=== PATIENT | male | born 1985 | race Caucasian/White ===

== ENCOUNTER 2023-02-19 11:12 | Inpatient (IN) | payer OTHER, SELFPAY ==
[2023-02-19] VITALS (14 sets, daily range): BP systolic 108–133; BP diastolic 63–85; PULSE 76–109; RESP 15–24; TEMP 36.4–37.3; O2SAT 96–100; BMI 25.2
--- NOTE | ~2023-02-19 | CT_ITS ---
EXAMINATION: CT brain wo con DATE: 02/19/2023 12:38 INDICATION: Altered mental status. TECHNIQUE: Computed tomography (CT) of the head was performed without intravenous contrast. The mA wa s adjusted according to patient size. Iterative reconstruction technique was employed. The dose-lengt h product was 1210.67 mGy-cm. COMPARISON: None FINDINGS: There is no intracranial hemorrhage, acute infarction, or abnormal intracranial mass lesion . The ventricles are normal in size. There is mild mucosal thickening ethmoid sinuses. There is compl ete opacification of the visualized portion of right maxillary sinus. The mastoid air cells are merna l. The orbits are normal. IMPRESSION: 1. Normal brain. Reviewed, dictated and finalized at location A. IMPRESSION: 1. Normal brain.
--- NOTE | ~2023-02-19 | CT_ITS ---
EXAMINATION: CT cervical spine wo con DATE: 02/20/2023 09:48 INDICATION: Seizure and fall TECHNIQUE: Computed tomography (CT) of the cervical spine was performed without intravenous contrast. Automated exposure control and iterative reconstruction technique were employed. The dose-length pro duct was 409.99 mGy-cm. COMPARISON: None FINDINGS: Alignment is normal. Vertebral body heights are normal. No fracture. Minimal disc height loss with mi ld disc bulge at C5-C6 resulting in only minimal central canal stenosis. Mild bilateral facet osteoar thritis at C7-T1 and the visualized upper thoracic spine. Multilevel minimal to mild bilateral cervic al uncovertebral osteoarthritis which contributes to mild neural foraminal stenosis on the left at C5 -C6 and C6-C7. Cervical soft tissues are unremarkable. Visualized apices of the lungs are clear. IMPRESSION: 1. Minimal cervical spondylosis. No acute osseous abnormality. Reviewed, dictated and finalized at location A.
--- NOTE | ~2023-02-19 | MR_ITS ---
EXAMINATION: MR brain/brain stem wo/w con DATE: 02/20/2023 09:45 INDICATION: New onset seizure. TECHNIQUE: Magnetic resonance imaging (MRI) of the brain and brainstem was performed without and with 17 mL MultiHance intravenous contrast. COMPARISON: None. FINDINGS: There is no intracranial hemorrhage, acute infarction, or abnormal intracranial mass lesion . The hippocampi are normal and symmetric. The ventricles are normal. There is mild mucosal thickenin g in the right ethmoid sinuses. There is complete opacification of right maxillary sinus, which is sm all. There is a trace left mastoid effusion. The orbits are normal. IMPRESSION: 1. Normal brain. 2. Silent sinus syndrome involving right maxillary sinus. Reviewed, dictated and finalized at location A.
--- NOTE | ~2023-02-19 | XR_ITS ---
EXAMINATION: XR chest 2V 02/20/2023 13:27 INDICATION: Possible aspiration PROCEDURE: 2 view chest COMPARISON: No prior studies for comparison. FINDINGS: The lungs are clear. The cardiomediastinal silhouette is within normal limits. There are no pleural effusions. There is no pneumothorax suspected. IMPRESSION: 1: NO ACUTE CARDIOPULMONARY DISEASE. Reviewed, dictated and finalized at location B.
--- NOTE | 2023-02-19 11:35 | ECG_ITS ---
Measurements Intervals [place] Rate: 72 P: 63 OK: 176 QRS: 36 QRSD: 103 T: 44 QT: 387 QTc: 425 Interpretive Statements SINUS RHYTHM WITH MARKED SINUS ARRHYTHMIA INCOMPLETE RIGHT BUNDLE BRANCH BLOCK BORDERLINE ECG NO PREVIOUS ECG AVAILABLE FOR COMPARISON Electronically Signed On 02-19-2023 11:41:42 CDT by Ambrosio Gan D.O.
[2023-02-19 11:39] LABS: Glucose Point of Care 142 mg/dl (65-105)
[2023-02-19 12:07] LABS: Basophils Percent Auto 0.2 % (0.2-1.2); Eosinophils Percent Auto 0.1 % (0-4.4); Hematocrit 45.6 % (42.0-52.0); Hemoglobin 15.6 g/dL (14.0-18.0); Immature Granulocyte Absolute 0.16 K/mm3 (0.00-0.031); Immature Granulocyte Percent A 0.9 % (0-0.5); Lymphocytes Percent Auto 5.9 % (18.3-44.2); Mean Corpuscular HGB Conc 34.2 g/dl (32-36); Mean Corpuscular Hemoglobin 30.5 pg (26-34); Mean Corpuscular Volume 89.2 fl (80-100); Monocytes Absolute Auto 1.2 K/mm3 (0.1-0.6); Monocytes Percent Auto 6.5 % (2.6-8.5); Neutrophils Absolute Auto 16.2 K/mm3 (1.3-6.7); Neutrophils Percent Auto 86.4 % (45.5-73.1); Platelet Count Result 250 k/mm3 (150-375); Red Blood Count 5.11 M/mm3 (4.6-6.20); Red Cell Distribution Width 12.9 % (11.5-14.5); White Blood Count 18.7 K/mm3 (4.5-10.0)
[2023-02-19 12:18] LABS: Prothrombin Time 13.6 Seconds (11.1-14.7)
[2023-02-19 12:19] LABS: Alanine Aminotransferase 24 U/L (6-50); Alkaline Phosphatase 74 U/L (38-126); Anion Gap 12 mmol/L (8-16); Aspartate Amino Transferase 33 U/L (17-59); Bilirubin,Total 0.5 mg/dL (0.2-1.3); Blood Urea Nitrogen 8 mg/dL (9-20); Calcium 8.2 mg/dL (8.4-10.2); Carbon Dioxide 18 mmol/L (22-30); Chloride 110 mmol/L (98-107); Estimated Glomerular Filt Rate > 60; Glucose 125 mg/dL (65-110); Partial Thromboplastin Time 25.4 SECONDS (22.3-36.8); Potassium 4.2 mmol/L (3.4-5.0); Sodium 140 mmol/L (137-145)
--- NOTE | 2023-02-19 12:19 | ED.AMS ---
HPI - Altered Mental Status General Chief Complaint: Altered Mental Status Time Seen by Provider: 02/19/23 12:14 Source: patient and family History of Present Illness HPI narrative: Patient 37 years old white male brought to the emergency room by his sister/ambulance. who is telling us that patient roommate told her that patient was screaming last night and acted funny like having a demon. Roommate states that patient did smoke weed, patient stated he bought it off the street which he has done before. Patient does not remember any unusual events yesterday. Patient have dried emesis on his mouth and the close since yesterday. Currently complaining of headache. Sister reported that his roommate heard a thud in the bathroom this morning, found the patient on the floor shaking like having seizure, the ED nurse called me because patient having seizure-like activity, patient was shaking all over, foaming from mouth when I saw him for the first time. Ativan 2 mg IV ordered, 1 g Keppra IV ordered. Related Data Allergies Allergy/AdvReac Type Severity Reaction Status Date / Time No Known Allergies Allergy Verified 03/09/15 18:10 Review of Systems Review of Systems: All systems reviewed & are unremarkable except as noted in HPI and below Exam Narrative: General appearance: Well-developed, well-nourished, restless, status post seizure Skin: Normal color Head: Normocephalic, nontraumatic Eyes: Clear conjunctiva ENT: Oropharynx normal, ears normal, nose normal Neck: Supple, nontender Chest and respiratory: Airway patent, no respiratory distress, no accessory muscle use Heart: Regular rate/rhythm Abdomen: Soft, nontender, no organomegaly, quiet bowel sounds Vascular: Normal peripheral pulses, normal capillary refill. Neurologic: Postictal confusion and restlessness Course Consultations Consultation #1: Dr. Rebollar Date: 02/19/23 Time: 13:10 Vital Signs Vital signs: Vital Signs Pulse Rate 78 02/19/23 11:32 Respiratory Rate 15 02/19/23 11:32 Blood Pressure 123/85 02/19/23 11:32 Pulse Oximetry 97 02/19/23 11:32 Oxygen Delivery Room Air 02/19/23 11:32 Pulse Rate 104 H 02/19/23 13:31 Respiratory Rate 18 02/19/23 13:31 Blood Pressure 132/83 02/19/23 13:30 Pulse Oximetry 98 02/19/23 13:31 Oxygen Delivery Nasal Cannula 02/19/23 13:29 Oxygen Flow Rate 3 02/19/23 13:29 MDM - Altered Mental Status MDM Narrative Medical decision making narrative: Patient brought to the emergency room by ambulance with his sister who is telling us that patient was acting funny yesterday and had a fall in the bathroom this morning and had seizure-like activity, in the ED patient had seizure-like activity and I was called at that time to see the patient and this was the first time for me to evaluate the patient. He was shaking all over, foaming from mouth, consistent with seizure like activity. Ativan 2 mg IV, Keppra 1 g IV ordered. Differential diagnosis drug abuse, new onset of seizure-like activities, head trauma. Work-up today showed elevated white count of 18.7 which could be reactive, patient does not have any fever or chills prior to arrival to the emergency room. Normal coags, normal CMP, insignificant urine analysis, urine drug screen showed positive for marijuana, no alcohol, CT head showed no acute abnormalities. Patient to be admitted to medical floor, neuro consult, Differential Diagnosis Differential diagnosis: Likely altered mental status, hyponatremia, subarachnoid hemorrhage and other (Drug abuse, seizure) Lab Data 02/19/23 12:00 02/19/23 12:00 Labs: Lab Results 02/19/23 02/19/23
[2023-02-19 12:34] LABS: Ethanol < 10 mg/dL (<10)
[2023-02-19] MEDS: LORazepam INJ (*CRX) 2 MG/ML VIAL ×2 (12:50→13:15)
[2023-02-19] MEDS: levETIRAcetam 1000MG/NACL100ML 1,000 MG/100 ML BAG 400 MG IVPB (13:05)
--- NOTE | 2023-02-19 13:15 | PC.NURSE ---
1315: VORB from Dr. Little for 5mg of valium. medication overrode in pyxis.
--- NOTE | 2023-02-19 13:20 | PC.NURSE ---
after pulling the valium and wasting 5mg in the pyxis, Dr. Hunter decided he wanted the entire 10 mg given.
[2023-02-19] MEDS: diazePAM INJ (*CRX) 10 MG/2 ML SYRINGE IV PUSH (13:22)
--- NOTE | 2023-02-19 13:26 | PC.NURSE ---
patient's father present in room states that patient looked similar to what he looked like after having a seizure when he arrived to his house this morning. unsure if patient had previous seizure. patient is not alert, thrashing in bed. unable to follow commands at this time. seizure pads in place. call light given to family to call for assistance as needed. provider aware. patient medicated
[2023-02-19 13:39] LABS: Amphetamine Screen Urine Negative (Negative); Barbiturate Screen Urine Negative (Negative); Benzodiazepines Screen Urine Negative (Negative); Cocaine Screen Urine Negative (Negative); Methadone Screen Urine Negative (Negative); Opiate Screen Urine Negative (Negative); Phencyclidine Screen Urine Negative (Negative)
[2023-02-19 13:48] LABS: Appearance Urine Turbid (Clear); Bacteria Urine Rare /hpf; Bilirubin Urine Negative (Negative); Blood Urine 2+ (Negative); Color Urine Yellow (Yellow); Glucose Urine UA Negative (Negative); Ketones Urine 1+ mg/dL (Negative); Leukocyte Esterase Ur Negative LEU/UL (Negative); Nitrate Urine Negative (Negative); Protein Urine 2+ mg/dL (Negative); RBC Urine 0-2 /hpf (0-2); Specific Grav Ur 1.013 (1.001-1.035); Squamous Epithelial Cell Urine Few /hpf (Few); Urobilinogen Urine 0.2 mg/dL (<2.0); WBC Urine 0-5 /hpf
[2023-02-19 13:49] LABS: Add Urine Microscopic? YES
[2023-02-19 13:56] LABS: Cannabinoid Screen Urine Positive (Negative)
--- NOTE | 2023-02-19 13:57 | PC.NURSE ---
patient continues to move around in bed and will not follow commands. provider aware and ok to take to room then do CT when patient able to relax
--- NOTE | 2023-02-19 14:25 | PC.NURSE ---
This patient, Rohit Leon, was admitted to [facility] Surg Room 333-01. Patient/family oriented to hospital policies and general routines including ID bracelet, bed and alarms, visiting hours, pain management, procedures, bathroom and other care routines, personal items, smoking policy, room service/diet, and visiting hours.Report from Isabella GARCIA Information on how to activate the Rapid Response Team has been discussed. Patient/Family are encouraged to report perceived risks to care and to ask questions if they do not understand what they are told or what they should do.
[2023-02-19] MEDS: SODIUM CHLORIDE 0.9% IV 1,000 ML 125 ML IV CONT ×2 (15:06→23:18)
--- NOTE | 2023-02-19 21:49 | PM.IMHP ---
H&P: HPI History of Present Illness Date/Time: 02/19/23 18:30 Chief Complaint: Altered mental status. Narrative: This is a 37-year-old male smoker without significant medical history who presented to the emergency department via EMS from home for evaluation of altered mental status. He is arousable but unable to provide history and thus a majority of the following is obtained via a review of his electronic medical records as well as discussions with his mother and sister who are at bedside. The patient lives with a roommate in [place] and he seemed to be in his usual state of health yesterday afternoon. He spoke with his mother at around 15:00 and he told her he was once again having migrainous headaches which he developed within the last month or so. He had no other complaints, however. According to the roommate he did smoke some marijuana last evening which is not unusual for him and it was purchased from someone that he knows. Later on in the evening and overnight the patient's from a heard him making strange moaning noises and ?demonic? noises though it does not sound as though he went in the bedroom to check on him. This morning he heard a thud coming from the bathroom and he found the patient lying on the floor in the bathroom, unresponsive with seizure-like activity. EMS was summoned and he was very confused on their arrival. There was evidence of dried emesis on his face and arms. Not long after arriving to the emergency department he had seizure-like activity to include shaking all over and foaming of the mouth for which he received lorazepam 2 mg IV and Keppra 1 g IV. He is being admitted in this setting for close monitoring and further workup. He has no prior history of seizures. Roommate does not think he did any other drugs aside from marijuana yesterday. He does not drink alcohol often. He is not on benzodiazepines at home. He has not been started on any new medications recently. Vital signs were stable on arrival to the ED. labs were significant for a WBC count of 18.7 and carbon dioxide of 18. Urine drug screen was positive for cannabinoids. Brain CT showed a normal brain. He received diazepam 10 mg and lorazepam 2 mg in the ED for seizure-like activity. He was also loaded with levetiracetam 1 g. He has been admitted in this setting for close monitoring and neurology consultation. Review of Systems Review of Systems: Unable to obtain given current clinical condition. [facility] Past Medical History Medical History Tobacco use Surgical History Surgical History History of tympanostomy tube placement Family History Family History Grandparent Diabetes mellitus CHF (congestive heart failure) Father Diabetes mellitus Social History Social History Social History: Surrogate medical decision maker: Daniela Leon, mother. Code status: Full code. Smoking packs per day: 1 Smoking cigarettes per day: 20.0 Years smoked: 3 Smoking pack-years: 3.00 Smoking status: Current every day smoker Tobacco type: cigarettes Alcohol intake: current Alcohol use details: Social alcohol use in moderation. Substance use: current Substance use type: marijuana Additional living arrangements comments: Lives with roommate in [place]. Additional occupation/education comments: [employer]. Spiritual care concerns: No Meds Home Medications and Allergies Home Medications Medication Instructions Recorded Confirmed Type No Home Medications 02/19/23 02/19/23 History Allergies Allergy/AdvReac Type Severity Reaction Status Date / Time No Known Allergies Allergy Verified 02/19/23 15:59 Vital Signs Vital Signs - 24 hr 02/19/23 11:32 02/19/23 13:29 02/19/23 13:16 Temperature Pulse Rate 78 109 H Respiratory Rate 15 Blood Pressure 123/85 Pulse O
[2023-02-20] VITALS (9 sets, daily range): BP systolic 97–126; BP diastolic 59–81; PULSE 47–95; RESP 16–18; TEMP 35.9–36.2; O2SAT 97–100
--- NOTE | 2023-02-20 02:36 | PC.NURSE ---
Patient set bed alarm off several times by climbing out of bed, patient voided in bed and then states he has to void. Found patient this time climbing over bed rails tangled in telemetry and his IV fluid line. Patient had disconnected the cap from the IV tubing connector, blood all over patient and in the bed. IV fluids put on hold at this time d/t patient's confusion and climbing out of bed and being a safety risk to himself.
[2023-02-20 06:28] LABS: Basophils Percent Auto 0.2 % (0.2-1.2); Hemoglobin 14.4 g/dL (14.0-18.0); Immature Granulocyte Absolute 0.09 K/mm3 (0.00-0.031); Immature Granulocyte Percent A 0.5 % (0-0.5); Lymphocytes Absolute Auto 2.52 K/mm3 (0.9-3.2); Lymphocytes Percent Auto 12.9 % (18.3-44.2); Mean Corpuscular HGB Conc 34.3 g/dl (32-36); Mean Corpuscular Hemoglobin 30.7 pg (26-34); Mean Corpuscular Volume 89.6 fl (80-100); Mean Platelet Volume 10.2 fl (7.4-10.4); Monocytes Absolute Auto 2.1 K/mm3 (0.1-0.6); Monocytes Percent Auto 10.9 % (2.6-8.5); Neutrophils Absolute Auto 14.8 K/mm3 (1.3-6.7); Neutrophils Percent Auto 75.5 % (45.5-73.1); Platelet Count Result 232 k/mm3 (150-375); Red Blood Count 4.69 M/mm3 (4.6-6.20); Red Cell Distribution Width 13.2 % (11.5-14.5); White Blood Count 19.5 K/mm3 (4.5-10.0)
[2023-02-20 06:41] LABS: Alanine Aminotransferase 19 U/L (6-50); Albumin Level 4.4 g/dL (3.5-5.1); Alkaline Phosphatase 65 U/L (38-126); Anion Gap 8 mmol/L (8-16); Aspartate Amino Transferase 31 U/L (17-59); Bilirubin,Total 0.8 mg/dL (0.2-1.3); Blood Urea Nitrogen 13 mg/dL (9-20); Calcium 8.6 mg/dL (8.4-10.2); Carbon Dioxide 22 mmol/L (22-30); Chloride 111 mmol/L (98-107); Creatine Kinase 1291 U/L (55-170); Estimated CRCL calculation 76 ml/min; Estimated Glomerular Filt Rate > 60; Glucose 98 mg/dL (65-110); Magnesium 2.6 mg/dL (1.6-2.3); Potassium 3.7 mmol/L (3.4-5.0); Sodium 141 mmol/L (137-145)
[2023-02-20 07:25] LABS: Hemoglobin A1C 5.3 % (<5.7)
[2023-02-20] MEDS: levETIRAcetam 500MG/NACL 100ML 500 MG/100 ML BAG 400 MG IVPB ×2 (08:47→20:12)
--- NOTE | 2023-02-20 09:46 | WPDNEURCNPN ---
Assessment and Plan Assessment and plan (1) Altered mental status: Code(s): R41.82 - Altered mental status, unspecified Status: Acute (2) Seizure disorder: Code(s): G40.909 - Epilepsy, unspecified, not intractable, without status epilepticus Status: Acute (3) Marijuana use: Code(s): F12.90 - Cannabis use, unspecified, uncomplicated Status: Acute Plan Mr. Leon is a 37 year old male presenting due to first time seizure. Could be provoked by drug use. Given first time seizure, will hold off on maintenance seizure medications for now. Will proceed with new onset seizure work-up. - MRI brain w/o contrast - Routine EEG - Discussed no driving until seizure free for at least 6 months Consult date: 02/20/23 Reason for consult: New onset seizure HPI: Rohit Leon is a 37 year old male with a history of chronic tobacco use presenting due to new onset seizure. Patient's roomate reports that patient was screaming last night and not acting like himself. Patient did smoke marijuana which he bought off the street, which is not new for him. The following morning, the roommate heard a thud from patient's room and found him having full body convulsions with foaming at the mouth. EMS was called and patient appeared to be post-ictal at the time. He was taken to [place] ED, where he had another seizure. He was given Ativan 2mg, and Keppra 1g IV. CT head was negative for acute process. Urine drug screen was positive only for cannabinoids. Patient does not have any prior history of seizures. There is no family history of seizures. Review of Systems Constitutional: Constitutional: Denies chills, Denies fever(s) and Denies weight loss Eyes: Eyes: Denies diplopia and Denies loss of vision ENT: Denies dizziness, Denies hearing loss and Denies tinnitus Cardiovascular: Cardiovascular: Denies chest pain, Denies syncope and Denies dyspnea Respiratory: Respiratory: Denies cough, Denies dyspnea and Denies wheezing Gastrointestinal: Gastrointestinal: Denies abdominal pain, Denies change in bowel habits and Denies vomiting Genitourinary: Genitourinary: Denies urinary incontinence Musculoskeletal: Musculoskeletal: Denies arthralgias and Denies joint swelling Integumentary/Breasts: Skin/Breast: Denies new lesions and Denies rash Neurologic: Reports as per HPI, Denies dizziness, Denies syncope and Denies loss of vision Psychiatric: Psychiatric: Denies anxiety and Denies depression Endocrine: Endocrine: Denies cold intolerance and Denies heat intolerance Hematologic/Lymphatic: Hematologic/Lymphatic: Denies easy bleeding and Denies easy bruising Allergic/Immunologic: Allergic/Immunologic: Denies no additional allergic/immunologic complaints and Denies wheezing PMFSH Past Medical History Medical History Tobacco use Surgical History Surgical History History of tympanostomy tube placement Family History Family History Grandparent Diabetes mellitus CHF (congestive heart failure) Father Diabetes mellitus Social History Social History Social History: Surrogate medical decision maker: Daniela Leon, mother. Code status: Full code. Smoking packs per day: 1 Smoking cigarettes per day: 20.0 Years smoked: 3 Smoking pack-years: 3.00 Smoking status: Current every day smoker Tobacco type: cigarettes Alcohol intake: current Alcohol use details: Social alcohol use in moderation. Substance use: current Substance use type: marijuana Additional living arrangements comments: Lives with roommate in [place]. Additional occupation/education comments: [employer]. Spiritual care concerns: No Meds Home Medications and Allergies Home Medications Medication Instructions Recorded Confirmed Type No Home Medications 02/19/23
--- NOTE | 2023-02-20 11:50 | WPDNEUROLOGY ---
Neurology EEG Report General Information Date of Study: 02/20/23 TEST Routine EEG DIAGNOSIS New onset seizure CONDITION OF RECORDING Drowsy, asleep EEG NUMBER [id number] CLINICAL HISTORY Patient had witnessed seizure described as full body convulsions with foaming at the mouth. He had another seizure while in the emergency room. No prior history of seizures. EEG DESCRIPTION During eyes closed the background consists of 9 Hz posterior dominant rhythm which attenuates appropriately with eye opening. The recording is continuous. There is a well developed anterior-posterior gradient. No significant asymmetries of background activities are noted. With drowsiness there is waxing and waning of the dominant rhythm with eventual replacement by a mixture of beta, alpha, and theta activity. As the patient enters stage II sleep, symmetrical spindles and K-complexes are present. Arousal is unremarkable. There are no epileptiform discharges or seizures during this recording. Hyperventilation and photic stimulation were not performed. IMPRESSION This is a normal routine EEG recorded mostly in drowsy and asleep states. There are no electrographic seizures identified, nor are there any epileptiform discharges. Please note that a normal EEG cannot exclude a seizure disorder. Clinical correlation is recommended.
--- NOTE | 2023-02-20 13:24 | PM.IMPN ---
Progress Note: A&P Assessment and Plan (1) Altered mental status: Code(s): R41.82 - Altered mental status, unspecified Status: Acute Assessment and Plan: Resolved. Patient is A&O x4 at this time. Likely due to postictal state. See below. Brain CT showed no acute findings. White blood cell count is elevated though this is likely a stress response as there is no evidence to suggest infection. Drug screen was positive for cannabinoids and nothing else. brain MRI completed today and was unremarkable. (2) Seizure-like activity: Code(s): R56.9 - Unspecified convulsions Status: Acute Assessment and Plan: Patient was reported by his roommate to have strange noises and moaning, later went to check on the patient and found him on the ground. Brought to the ER where he had witnessed seizure activity. Received 1 g loading dose of IV Keppra in the ED. Continue with 500 mg Keppra b.i.d.. Seizure precautions implemented. EEG unremarkable. Appreciate Neurology consultation and recommendations. (3) Leukocytosis: Code(s): D72.829 - Elevated white blood cell count, unspecified Status: Acute Assessment and Plan: Likely demargination. No evidence to suggest infection at this time. Patient is afebrile. CXR completed to rule out aspiration pneumonia (patient reportedly had emesis during seizure activity), however showed no acute cardiopulmonary disease. UA without concerns for infection. WBC has slightly increased to 19.5 today. Continue to trend. (4) Hyperglycemia: Code(s): R73.9 - Hyperglycemia, unspecified Status: Acute Assessment and Plan: Likely due to stress response. Blood sugars well controlled at this time. A1c 5.3. (5) Tobacco use: Code(s): Z72.0 - Tobacco use Status: Acute Assessment and Plan: Smoking cessation has been encouraged. (6) Elevated creatine kinase: Code(s): R74.8 - Abnormal levels of other serum enzymes Status: Acute Assessment and Plan: CK is elevated at 1291. Likely due to seizure activity. Continue with gentle IV fluid rehydration. Trend CK Subjective Date/time seen: 02/20/23 13:24 Interval history: Date of service: 02/20/2023 Rohit Leon is a 37-year-old previously male with daily marijuana use who is seen in follow-up for seizure activity. Patient reports that his doing well at this time, he feels that he is back to his normal self. He denies any seizure-like activity today. He denies any shortness of breath, cough chest pain dysphagia. He is tolerating solids and liquids and denies any choking or coughing with eating or drinking. He denies abdominal pain, nausea, vomiting, fever, or chills. No urinary symptoms. States he has not yet been out of bed today. He denies any muscle aches, cramping, or joint pains. His mother is at the bedside who reports that the patient has been complaining of headache off and on for about 1 month. The patient denies a headache at this time. Denies biting his tongue, lip, cheek, or sustaining any other injuries. Review of Systems Review of Systems: All systems reviewed & are unremarkable except as noted in HPI and below Exam Narrative: General: Well-nourished, well-appearing 37-year-old male, supine in bed, comfortable, NARD Neuro: awake, alert and oriented x4, speech clear, no focal neuro deficits noted HEENMT: normocephalic, atraumatic, EOMI, sclerae anicteric Respiratory: clear to auscultation bilaterally, nonlabored breathing Cardio: regular rate, regular rhythm with S1-S2 Abdomen: nondistended, normoactive bowel sounds, soft, nontender to palpation Extremities: no edema, erythema, or tenderness to palpation, DP pulses 2+ bilaterally Skin: no rashes or lesions, warm and dry Psych: appropriate mood and affect, judgment and insight intact Objective Data Vital Signs Vital Signs: Vital Signs - 24 hr 01/29
--- NOTE | 2023-02-20 16:35 | PC.NURSE ---
Pt is A&O 4 male who answers questions appropriately. Pt has been drowsy today. Pt has had family at bedside. Pt went for CT, MRI, Chest X-Ray, and had an EEG done in room. Pt has tolerated testing well. Pt has reported not pain and states that he does not remember anything that happened. Pt has family at bedside. Will continue to monitor pt for any changes in status.
[2023-02-20] MEDS: SODIUM CHLORIDE 0.9% IV 1,000 ML 125 ML IV CONT (20:14)
[2023-02-21] VITALS (7 sets, daily range): BP systolic 106–141; BP diastolic 57–85; PULSE 52–98; RESP 14–18; TEMP 35.7–36.3; O2SAT 98–100
[2023-02-21 05:58] LABS: Basophils Percent Auto 0.3 % (0.2-1.2); Eosinophils Percent Auto 0.1 % (0-4.4); Hematocrit 40.2 % (42.0-52.0); Hemoglobin 13.6 g/dL (14.0-18.0); Immature Granulocyte Absolute 0.03 K/mm3 (0.00-0.031); Immature Granulocyte Percent A 0.2 % (0-0.5); Lymphocytes Percent Auto 25.6 % (18.3-44.2); Mean Corpuscular HGB Conc 33.8 g/dl (32-36); Mean Corpuscular Hemoglobin 30.3 pg (26-34); Mean Corpuscular Volume 89.5 fl (80-100); Mean Platelet Volume 10.3 fl (7.4-10.4); Monocytes Absolute Auto 1.3 K/mm3 (0.1-0.6); Monocytes Percent Auto 9.7 % (2.6-8.5); Neutrophils Absolute Auto 8.3 K/mm3 (1.3-6.7); Neutrophils Percent Auto 64.1 % (45.5-73.1); Platelet Count Result 205 k/mm3 (150-375); Red Blood Count 4.49 M/mm3 (4.6-6.20); White Blood Count 12.9 K/mm3 (4.5-10.0)
[2023-02-21 06:16] LABS: Alanine Aminotransferase 21 U/L (6-50); Alkaline Phosphatase 55 U/L (38-126); Anion Gap 10 mmol/L (8-16); Aspartate Amino Transferase 81 U/L (17-59); Bilirubin,Total 1.1 mg/dL (0.2-1.3); Blood Urea Nitrogen 14 mg/dL (9-20); Calcium 8.2 mg/dL (8.4-10.2); Carbon Dioxide 21 mmol/L (22-30); Chloride 108 mmol/L (98-107); Estimated CRCL calculation 102 ml/min; Estimated Glomerular Filt Rate > 60; Glucose 80 mg/dL (65-110); Magnesium 2.1 mg/dL (1.6-2.3); Potassium 3.3 mmol/L (3.4-5.0); Sodium 139 mmol/L (137-145)
[2023-02-21 06:53] LABS: Creatine Kinase 14516 U/L (55-170)
[2023-02-21] MEDS: POTASSIUM CHLORIDE 20 MEQ TABLET PO (09:48)
[2023-02-21] MEDS: levETIRAcetam 500MG/NACL 100ML 500 MG/100 ML BAG 400 MG IVPB (09:48)
[2023-02-21] MEDS: SODIUM CHLORIDE 0.9% IV 1,000 ML 125 ML IV CONT ×2 (09:48→18:13)
--- NOTE | 2023-02-21 11:40 | WPDNEUROPN ---
Progress Note: A&P Assessment and Plan (1) Seizure-like activity: Code(s): R56.9 - Unspecified convulsions Status: Acute (2) Altered mental status: Code(s): R41.82 - Altered mental status, unspecified Status: Acute (3) Marijuana use: Code(s): F12.90 - Cannabis use, unspecified, uncomplicated Status: Acute Plan Mr. Leon is a 37 year old male presenting due to first time seizure. Could be provoked by drug use. Given first time seizure, will hold off on maintenance seizure medications for now. Work-up has been negative (MRI brain and EEG) - OK to discharge - Discussed no driving until seizure free for at least 6 months - [place] [facility] [place] about 3-4 months Subjective Date/time seen: 02/21/23 11:40 Interval history: Rohit Leon is a 37 year old male with a history of chronic tobacco use presenting due to new onset seizure. Patient's roomate reports that patient was screaming last night and not acting like himself. Patient did smoke marijuana which he bought off the street, which is not new for him. The following morning, the roommate heard a thud from patient's room and found him having full body convulsions with foaming at the mouth. EMS was called and patient appeared to be post-ictal at the time. He was taken to [facility] ED, where he had another seizure. He was given Ativan 2mg, and Keppra 1g IV. CT head was negative for acute process. Urine drug screen was positive only for cannabinoids. Patient does not have any prior history of seizures. There is no family history of seizures. He has not had any additonal seizures since admission. EEG and MRI brain were normal. Review of Systems Constitutional: Constitutional: Denies chills, Denies fever(s) and Denies weight loss Eyes: Eyes: Denies diplopia and Denies loss of vision ENT: Denies dizziness, Denies hearing loss and Denies tinnitus Cardiovascular: Cardiovascular: Denies chest pain, Denies syncope and Denies dyspnea Respiratory: Respiratory: Denies cough, Denies dyspnea and Denies wheezing Gastrointestinal: Gastrointestinal: Denies abdominal pain, Denies change in bowel habits and Denies vomiting Genitourinary: Genitourinary: Denies urinary incontinence Musculoskeletal: Musculoskeletal: Denies arthralgias and Denies joint swelling Integumentary/Breasts: Skin/Breast: Denies new lesions and Denies rash Neurologic: Reports as per HPI, Denies dizziness, Denies syncope and Denies loss of vision Psychiatric: Psychiatric: Denies anxiety and Denies depression Endocrine: Endocrine: Denies cold intolerance and Denies heat intolerance Hematologic/Lymphatic: Hematologic/Lymphatic: Denies easy bleeding and Denies easy bruising Allergic/Immunologic: Allergic/Immunologic: Denies no additional allergic/immunologic complaints and Denies wheezing Exam Const: General: comfortable and no acute distress HENMT: Mouth: Yes moist mucous membranes Eyes: Pupils: Equal, round and reactive pupils present EOM: EOMs intact bilaterally Resp: Effort & Inspection: normal respiratory effort Auscultation: clear to auscultation bilaterally Cardio: Rate: bradycardic GI: GI Palp: Yes Soft to palpation Auscultation: normal bowel sounds Skin: General skin exam: normal color Neuro: Other: Pupils equal and reactive bilaterally, EOMI, face symmetric, facial sensation intact, tongue protrudes midline, palate midline. Shoulder shrug normal. Strength 5/5 throughout. Sensation intact throughout. FNF normal bilaterally. Language comprehension and fluency intact. Gait deferred. Extrem: General: normal to inspection Psych: Mental Status: mental status grossly normal Affect: normal affect Objective Data Vital Signs Vital Signs: Vital Signs - 24 hr 02/20/23 11:58 02/20/23 12:03 02/20/23 16:00 Temperature 35.9 C L 36.2 C L Pulse Rate 56 L 52 L 95 Respiratory Rate 16 16 Blood Pressure 119/59 L 120/70 Pulse Oximetry 99 97
--- NOTE | 2023-02-21 13:17 | PM.IMPN ---
Progress Note: A&P Assessment and Plan (1) Altered mental status: Code(s): R41.82 - Altered mental status, unspecified Status: Resolved Assessment and Plan: Resolved. Patient is A&O x4 at this time. Likely due to postictal state. See below. Brain CT showed no acute findings. White blood cell count elevated which is likely a stress response as there is no evidence to suggest infection. Drug screen was positive for only cannabinoids. brain MRI unremarkable. (2) Seizure-like activity: Code(s): R56.9 - Unspecified convulsions Status: Acute Assessment and Plan: Patient was reported by his roommate to have strange noises and moaning, later went to check on the patient and found him on the ground. Brought to the ER where he had witnessed seizure activity. Received 1 g loading dose of IV Keppra in the ED and subsequently was placed on Keppra 500 mg b.i.d.. Seizure precautions have been implemented. EEG unremarkable. Patient has been seen in consultation by Neurology, recommended patient avoid driving or other risky activities for 6 months. As this is his 1st time seizure, hold off on maintenance medications for now. Will discontinue IV Keppra. Will need outpatient neurology follow-up in 3-4 months (3) Rhabdomyolysis: Code(s): M62.82 - Rhabdomyolysis Status: Acute Assessment and Plan: Suspect secondary to seizure activity cK was 1291 yesterday. Renal function within normal limits, LFTs within normal limits. UA with 2+ blood but no RBCs. Patient has received IV fluids, normal saline at 125 mL[place] [address]. Suspect CK has peaked and hopeful for downward trend. Continue IV fluids at present rate. Patient appears to be adequately rehydrated. Give 1 dose of IV Lasix. Recheck CK and UA in the morning (4) Leukocytosis: Code(s): D72.829 - Elevated white blood cell count, unspecified Status: Acute Assessment and Plan: WBC elevated to 19.5. Likely demargination. No evidence to suggest infection at this time. Patient is afebrile. CXR completed to rule out aspiration pneumonia (patient reportedly had emesis during seizure activity), however showed no acute cardiopulmonary disease. UA without concerns for infection. WBC with improvement today to 12.9 (5) Hyperglycemia: Code(s): R73.9 - Hyperglycemia, unspecified Status: Acute Assessment and Plan: Likely due to stress response. Blood sugars well controlled at this time. A1c 5.3. (6) Tobacco use: Code(s): Z72.0 - Tobacco use Status: Acute Assessment and Plan: Smoking cessation has been encouraged. Subjective Date/time seen: 02/21/23 13:17 Interval history: Date of service: 02/21/2023 Rohit Leon is a 37-year-old previously male with daily marijuana use who is seen in follow-up for seizure activity. Patient feels very well today. He offers no complaints. Feels that he is at his baseline state of health. No seizure-like activity since admission. Appetite is good. Reports difficulty sleeping due to the bed being uncomfortable to him. Denies confusion. Denies headache. No nausea or vomiting. Denies muscle aches, cramping, swelling, or pain Review of Systems Review of Systems: All systems reviewed & are unremarkable except as noted in HPI and below Exam Narrative: General: Well-nourished, well-appearing 37-year-old male, supine in bed, comfortable, NARD Neuro: awake, alert and oriented x4, speech clear, no focal neuro deficits noted HEENMT: normocephalic, atraumatic, EOMI, sclerae anicteric Respiratory: clear to auscultation bilaterally, nonlabored breathing Cardio: regular rate, regular rhythm with S1-S2 Abdomen: nondistended, normoactive bowel sounds, soft, nontender to palpation Extremities: no edema, erythema, or tenderness to palpation, DP pulses 2+ bilaterally Skin: no rashes or lesions, warm and dry Ps
[2023-02-21] MEDS: FUROSEMIDE INJ 40 MG/4 ML VIAL IV PUSH (16:06)
[2023-02-22] VITALS: BP 121/80; PULSE 64; PULSE 73; RESP 16; TEMP 35.9; O2SAT 97
[2023-02-22] MEDS: SODIUM CHLORIDE 0.9% IV 1,000 ML 125 ML IV CONT (02:22)
[2023-02-22 04:00] VITALS: BP 150/84; PULSE 50; PULSE 60; RESP 18; TEMP 35.7; O2SAT 98
[2023-02-22 05:38] LABS: Appearance Urine Clear (Clear); Bacteria Urine None Seen /hpf; Bilirubin Urine Negative (Negative); Blood Urine Trace (Negative); Color Urine Yellow (Yellow); Glucose Urine UA Negative (Negative); Ketones Urine 1+ mg/dL (Negative); Leukocyte Esterase Ur Negative LEU/UL (Negative); Nitrate Urine Negative (Negative); Non Pathogenic Casts 0-2; Protein Urine Negative (Negative); RBC Urine 0-2 /hpf (0-2); Specific Grav Ur 1.013 (1.001-1.035); Squamous Epithelial Cell Urine None seen /hpf (Few); WBC Urine 0-5 /hpf
[2023-02-22 05:52] LABS: Add Urine Microscopic? YES
[2023-02-22 06:26] LABS: Basophils Percent Auto 0.3 % (0.2-1.2); Eosinophils Percent Auto 0.3 % (0-4.4); Hematocrit 42.7 % (42.0-52.0); Hemoglobin 14.6 g/dL (14.0-18.0); Immature Granulocyte Absolute 0.02 K/mm3 (0.00-0.031); Immature Granulocyte Percent A 0.2 % (0-0.5); Lymphocytes Absolute Auto 3.04 K/mm3 (0.9-3.2); Lymphocytes Percent Auto 30.2 % (18.3-44.2); Mean Corpuscular HGB Conc 34.2 g/dl (32-36); Mean Corpuscular Hemoglobin 29.6 pg (26-34); Mean Corpuscular Volume 86.4 fl (80-100); Mean Platelet Volume 10.4 fl (7.4-10.4); Monocytes Percent Auto 10.3 % (2.6-8.5); Neutrophils Absolute Auto 5.9 K/mm3 (1.3-6.7); Neutrophils Percent Auto 58.7 % (45.5-73.1); Platelet Count Result 223 k/mm3 (150-375); Red Blood Count 4.94 M/mm3 (4.6-6.20); Red Cell Distribution Width 12.4 % (11.5-14.5); White Blood Count 10.1 K/mm3 (4.5-10.0)
[2023-02-22 06:39] LABS: Alanine Aminotransferase 28 U/L (6-50); Albumin Level 4.1 g/dL (3.5-5.1); Alkaline Phosphatase 49 U/L (38-126); Anion Gap 8 mmol/L (8-16); Aspartate Amino Transferase 125 U/L (17-59); Bilirubin,Total 1.1 mg/dL (0.2-1.3); Blood Urea Nitrogen 11 mg/dL (9-20); Calcium 8.6 mg/dL (8.4-10.2); Carbon Dioxide 26 mmol/L (22-30); Chloride 107 mmol/L (98-107); Estimated CRCL calculation 115 ml/min; Estimated Glomerular Filt Rate > 60; Glucose 111 mg/dL (65-110); Magnesium 1.8 mg/dL (1.6-2.3); Potassium 3.2 mmol/L (3.4-5.0); Sodium 141 mmol/L (137-145)
[2023-02-22 07:24] LABS: Creatine Kinase > 16000 U/L (55-170)
[2023-02-22] MEDS: POTASSIUM CHLORIDE 20 MEQ TABLET 40 MEQ PO (07:56)
[2023-02-22 08:00] VITALS: BP 129/78; PULSE 60; PULSE 64; RESP 20; TEMP 36.2; O2SAT 99
[2023-02-22] MEDS: SODIUM CHLORIDE 0.9% IV 1,000 ML 150 ML IV CONT ×2 (10:10→16:52)
[2023-02-22 12:00] VITALS: BP 158/88; PULSE 52; PULSE 72; RESP 18; TEMP 36.6; O2SAT 100
--- NOTE | 2023-02-22 14:37 | PM.IMPN ---
Progress Note: A&P Assessment and Plan (1) Altered mental status: Code(s): R41.82 - Altered mental status, unspecified Status: Resolved Assessment and Plan: Resolved. Patient is A&O x4 at this time. Likely due to postictal state. See below. Brain CT showed no acute findings. White blood cell count elevated which is likely a stress response as there is no evidence to suggest infection. Drug screen was positive for only cannabinoids. brain MRI unremarkable. (2) Seizure-like activity: Code(s): R56.9 - Unspecified convulsions Status: Acute Assessment and Plan: Patient was reported by his roommate to have strange noises and moaning, later went to check on the patient and found him on the ground. Brought to the ER where he had witnessed seizure activity. Received 1 g loading dose of IV Keppra in the ED and subsequently was placed on Keppra 500 mg b.i.d.. Seizure precautions have been implemented. EEG unremarkable. Patient has been seen in consultation by Neurology, recommended patient avoid driving or other risky activities for 6 months. As this is his 1st time seizure, hold off on maintenance medications for now. IV Keppra discontinued on 02/21. Will need outpatient neurology follow-up in 3-4 months (3) Rhabdomyolysis: Code(s): M62.82 - Rhabdomyolysis Status: Acute Assessment and Plan: Suspect secondary to seizure activity. Initial CK was 1291. Renal function within normal limits. AST slightly elevated, additional LFTs within normal limits. UA with 2+ blood but no RBCs. CK has increased to >23804 due to likely prolonged seizure activity. Hopeful CK has peaked and will begin to trend downward. IV Lasix 40 mg x1 dose given yesterday with excellent urine output. Will increase IV fluids to 150 ml/hr today. Patient tolerating fluid without difficulty. Repeat UA today with clear urine and only only trace blood. Continue to trend CK. (4) Leukocytosis: Code(s): D72.829 - Elevated white blood cell count, unspecified Status: Acute Assessment and Plan: WBC elevated to 19.5 on presentation. Likely demargination. No evidence to suggest infection at this time. Patient is afebrile. CXR completed to rule out aspiration pneumonia (patient reportedly had emesis during seizure activity), however showed no acute cardiopulmonary disease. UA without concerns for infection. WBC with improvement today to 10.1 (5) Hyperglycemia: Code(s): R73.9 - Hyperglycemia, unspecified Status: Acute Assessment and Plan: Likely due to stress response. Blood sugars well controlled at this time. A1c 5.3. (6) Tobacco use: Code(s): Z72.0 - Tobacco use Status: Acute Assessment and Plan: Smoking cessation has been encouraged. Subjective Date/time seen: 02/22/23 14:37 Interval history: Date of service: 02/22/2023 Rohit Leon is a 37-year-old previously male with daily marijuana use who is seen in follow-up for seizure activity. He is feeling well today. He offers no complaints other than discomfort due to sleeping in the hospital bed. He is eating well. No muscle pain or weakness. He is very eager for discharge home. Review of Systems Review of Systems: All systems reviewed & are unremarkable except as noted in HPI and below Exam Narrative: General: Well-nourished, well-appearing 37-year-old male, supine in bed, comfortable, NARD Neuro: awake, alert and oriented x4, speech clear, no focal neuro deficits noted HEENMT: normocephalic, atraumatic, EOMI, sclerae anicteric Respiratory: clear to auscultation bilaterally, nonlabored breathing Cardio: regular rate, regular rhythm with S1-S2 Abdomen: nondistended, normoactive bowel sounds, soft, nontender to palpation Extremities: no edema, erythema, or tenderness to palpation, DP pulses 2+ bilaterally Skin: no rashes or lesions, warm and dry Psych: appropriate moo
[2023-02-22 16:00] VITALS: BP 149/81; PULSE 65; RESP 20; TEMP 36.4; O2SAT 99
[2023-02-22] MEDS: MAGNESIUM SULF 2 GM/WATER 50ML 2 GM/50 ML BAG IVPB (16:52)
[2023-02-22 20:00] VITALS: BP 145/93; PULSE 65; PULSE 87; RESP 20; TEMP 36.3; O2SAT 99
[2023-02-23] VITALS: BP 109/72; PULSE 80; RESP 18; TEMP 36.2; O2SAT 98
[2023-02-23 04:00] VITALS: BP 128/75; PULSE 76; RESP 20; TEMP 36.3; O2SAT 99
[2023-02-23] MEDS: SODIUM CHLORIDE 0.9% IV 1,000 ML 150 ML IV CONT ×2 (06:08→12:25)
[2023-02-23 07:17] LABS: Hematocrit 44.1 % (42.0-52.0); Hemoglobin 15.2 g/dL (14.0-18.0); Mean Corpuscular HGB Conc 34.5 g/dl (32-36); Mean Corpuscular Hemoglobin 30.3 pg (26-34); Mean Platelet Volume 10.4 fl (7.4-10.4); Platelet Count Result 227 k/mm3 (150-375); Red Blood Count 5.01 M/mm3 (4.6-6.20); Red Cell Distribution Width 12.6 % (11.5-14.5); White Blood Count 9.5 K/mm3 (4.5-10.0)
[2023-02-23 07:41] LABS: Alanine Aminotransferase 37 U/L (6-50); Albumin Level 4.2 g/dL (3.5-5.1); Alkaline Phosphatase 53 U/L (38-126); Anion Gap 6 mmol/L (8-16); Aspartate Amino Transferase 183 U/L (17-59); Bilirubin,Total 1.1 mg/dL (0.2-1.3); Blood Urea Nitrogen 7 mg/dL (9-20); Calcium 8.8 mg/dL (8.4-10.2); Carbon Dioxide 29 mmol/L (22-30); Chloride 107 mmol/L (98-107); Estimated CRCL calculation 115 ml/min; Estimated Glomerular Filt Rate > 60; Glucose 99 mg/dL (65-110); Magnesium 2.1 mg/dL (1.6-2.3); Potassium 3.4 mmol/L (3.4-5.0); Sodium 142 mmol/L (137-145)
[2023-02-23 08:00] VITALS: BP 148/91; PULSE 81; RESP 20; TEMP 35.7; O2SAT 100
[2023-02-23 09:00] VITALS: O2SAT 98
[2023-02-23 12:24] LABS: Creatine Kinase > 16000 U/L (55-170)
--- NOTE | 2023-02-23 12:32 | PM.DS ---
DS: Admitting Diagnosis Discharge Date 02/23/2023 Admitting Diagnosis seizure-like activity DS: Discharge Diagnosis Discharge Diagnosis (1) Altered mental status: Code(s): R41.82 - Altered mental status, unspecified Status: Resolved Assessment and Plan: Resolved. Patient is A&O x4 at this time. Likely due to postictal state. See below. Brain CT showed no acute findings. White blood cell count elevated which is likely a stress response as there is no evidence to suggest infection. Drug screen was positive for only cannabinoids. brain MRI unremarkable. (2) Seizure-like activity: Code(s): R56.9 - Unspecified convulsions Status: Acute Assessment and Plan: Patient was reported by his roommate to have strange noises and moaning, later went to check on the patient and found him on the ground. Brought to the ER where he had witnessed seizure activity. Received 1 g loading dose of IV Keppra in the ED and subsequently was placed on Keppra 500 mg b.i.d.. EEG unremarkable. Patient has been seen in consultation by Neurology, recommended patient avoid driving or other risky activities for 6 months. As this is his 1st time seizure, hold off on maintenance medications for now. IV Keppra discontinued on 02/21. Will need outpatient neurology follow-up in 3-4 months. to establish with PCP in the meantime (3) Rhabdomyolysis: Code(s): M62.82 - Rhabdomyolysis Status: Acute Assessment and Plan: Suspect secondary to seizure activity. Initial CK was 1291. Renal function within normal limits. AST slightly elevated, additional LFTs within normal limits. UA with 2+ blood but no RBCs. CK has increased to >30823 due to likely prolonged seizure activity. patient refused longer hospitalization to monitor for decline in CK. States he will sign out AMA if not discharged today. He understands the need to push fluids and return to the hospital should his urine turned darker or urine output decrease. At present he is having no muscle pain. He understands he should avoid strenuous activity until seen for follow-up by PCP. (4) Leukocytosis: Code(s): D72.829 - Elevated white blood cell count, unspecified Status: Acute Assessment and Plan: WBC elevated to 19.5 on presentation. Likely demargination. No evidence to suggest infection at this time. Patient is afebrile. CXR completed to rule out aspiration pneumonia (patient reportedly had emesis during seizure activity), however showed no acute cardiopulmonary disease. UA without concerns for infection. WBC with improvement today to 9.5 (5) Hyperglycemia: Code(s): R73.9 - Hyperglycemia, unspecified Status: Acute Assessment and Plan: Likely due to stress response. Blood sugars well controlled at this time. A1c 5.3. (6) Tobacco use: Code(s): Z72.0 - Tobacco use Status: Acute Assessment and Plan: Smoking cessation has been encouraged. (7) Cannabis use disorder: Code(s): F12.90 - Cannabis use, unspecified, uncomplicated Status: Acute Assessment and Plan: F/u with PCP DS: Summary Hospital Course Reason for hospitalization: Seizure-like activity Hospital Course: admitted when roommate noted seizure-like activity. EMS summoned. Brought to the emergency department. Was confused. This resolved. EEG and MRI of the brain were unremarkable. He was seen by Neurology and no maintenance anti seizure medication was recommended. He was initially treated with Keppra and this was discontinued on 02/21. He had no further seizure activity. He was up and about without difficulty tolerating his diet. Able to manage ADLs on his own. He was alert oriented person place and time. Time Spent with Patient Time attestation: Total time spent providing and/or coordinating discharge services: Exam Narrative: General: Well-nourished, well-appearing 37-year-o
== END 2023-02-23 13:55 | disposition home or self-care (01) | DRG 53 ==
LOC: ANHED 12:14 → ANH3MEDSUR 14:05
PROVIDERS: Family Medicine; Physician Assistant; Admitting Provider Chiropractor; Emergency Provider Emergency Medicine; Visit Provider Internal Medicine
DX: R56.9 Unspecified convulsions (principal); M62.82 Rhabdomyolysis; D72.829 Elevated white blood cell count, unspecified; F17.210 Nicotine dependence, cigarettes, uncomplicated; F12.90 Cannabis use, unspecified, uncomplicated; R73.9 Hyperglycemia, unspecified
CPT/HCPCS: 36415; 70450; 70553; 71046; 72125; 80053; 80307; 81001; 82550; 82607; 82948; 83036; 83735; 84443; 85025; 85027; 85610; 85730; 86140; 93005; 95816; 96361; 96365; 96374; 96375; 96376; 99285; A9270; A9577; G0378; G0379; J1940; J1953; J2060; J3360; J3475; J7030

== ENCOUNTER 2023-04-30 11:21 | Emergency (ER) | payer OTHER, SELFPAY ==
--- NOTE | ~2023-04-30 | XR_ITS ---
Clinical Indication: Cough PA and lateral views of the chest: Comparison: 02/20/2023 Findings: The lungs are clear, without evidence of focal consolidation or pleural effusion. Cardiome diastinal silhouette is within normal limits. Bones and soft tissues are unremarkable. Impression: Normal chest. Reviewed, dictated and finalized at location . Impression: Normal chest.
[2023-04-30 11:30] VITALS: BP 156/97; PULSE 116; RESP 18; TEMP 37.1; O2SAT 98
[2023-04-30 11:32] VITALS: BP 156/97; PULSE 116; RESP 18; TEMP 37.1; O2SAT 98
--- NOTE | 2023-04-30 11:37 | ED.GENADULT ---
HPI - General Adult General Chief complaint: Upper Respiratory Infection Stated complaint: Cough/Chest Pain Source: patient Mode of arrival: ambulatory Limitations: no limitations History of Present Illness HPI narrative: Patient presents for evaluation of cough for the past week. During coughing episodes and with deep inspiration, he does experience some pleuritic chest pain. Denies chest pain otherwise. No fever, chills, nausea, vomiting, sore throat. He does have some pressure in his ears and reports changes in his sense of taste and also sense of smell. His PCP prescribed tessalon but he could not afford the medication. He tried dextromethorphan without much improvement. He smokes 0.5-1 ppd. No recent sick contacts to his knowledge. He has never had COVID before. Related Data Home Medications Medication Instructions Recorded Confirmed buspirone 10 mg tablet mg 04/30/23 hydroxyzine HCl 25 mg tablet mg 04/30/23 levetiracetam 500 mg tablet mg PO 04/30/23 Allergies Allergy/AdvReac Type Severity Reaction Status Date / Time No Known Allergies Allergy Verified 02/19/23 15:59 Review of Systems Review of Systems: CONSTITUTIONAL: Denies fever, chills, or sweats. EYES: Denies visual changes, redness, or discharge. ENT: Reports alterations in sense of taste and also in sense of smell. Denies rhinorrhea, congestion, sore throat, or otalgia. CARDIOVASCULAR: Reports pleuritic chest pain. Denies chest pain otherwise. Denies palpitations, or edema. RESPIRATORY: Reports cough and shortness of breath only during coughing episodes. GASTROINTESTINAL: Denies abdominal pain, nausea, vomiting, or diarrhea. GENITOURINARY: Denies dysuria or hematuria. SKIN: Denies rash or itching. MUSCULOSKELETAL: Denies back pain, joint pain, or myalgia. NEUROLOGIC: Denies headache, numbness, dizziness, or weakness. PSYCHIATRIC: Denies anxiety or depression. [facility] Past Medical History Medical History Tobacco use Surgical History Surgical History History of tympanostomy tube placement Family History Family History Grandparent Diabetes mellitus CHF (congestive heart failure) Father Diabetes mellitus Social History Social History Social History: Surrogate medical decision maker: Daniela Leon, mother. Code status: Full code. Smoking packs per day: 1 Smoking cigarettes per day: 20.0 Years smoked: 3 Smoking pack-years: 3.00 Smoking status: Current every day smoker Tobacco type: cigarettes Alcohol intake: current Alcohol use details: Social alcohol use in moderation. Substance use: current Substance use type: marijuana Living arrangements: with family Additional occupation/education comments: [employer]. Spiritual care concerns: No Exam Narrative: GENERAL: Well-appearing, well-nourished, and in no acute distress. HEAD: Normocephalic, atraumatic. EYES: PERRLA and EOMI. ENT: Nares clear, no rhinorrhea or epistaxis. Mucous membranes moist. Oropharynx without tonsillar hypertrophy exudate or other lesions. Bilateral TMs pearly juarez nonbulging NECK: Supple. No adenopathy or masses. No carotid bruits or JVD CHEST: Clear to auscultation. No respiratory distress. No wheezes rales or rhonchi HEART: Regular rate and rhythm. No murmur heard. Normal peripheral pulses. ABDOMEN: Soft, nontender, nondistended, normal active bowel sounds. EXTREMITIES: Normal range of motion. No edema. SKIN: Warm, dry, no rash. NEURO: No focal deficits. Alert and oriented x3. PSYCH: Normal mood and affect. Course Course Emergency Course: This is a 37-year-old male who presented for evaluation of respiratory symptoms. COVID negative. Chest x-ray negative. Exam consistent with viral URI. Farhat dc with scripts for [place]
== END 2023-04-30 12:19 | disposition home or self-care (01) ==
PROVIDERS: Emergency Provider Nurse Practitioner; PCP Physician Assistant
DX: J06.9 Acute upper respiratory infection, unspecified (principal); Z20.822 Contact with and (suspected) exposure to COVID-19; F17.210 Nicotine dependence, cigarettes, uncomplicated; F12.90 Cannabis use, unspecified, uncomplicated
CPT/HCPCS: 71046; 87426; 99213; C9803; G0463

== ENCOUNTER 2025-05-24 17:44 | Emergency (ER) | payer OTHER, SELFPAY ==
[2025-05-24 17:45] VITALS: BP 159/97; PULSE 99; RESP 16; TEMP 36.5; O2SAT 100
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
--- NOTE | 2025-05-24 18:40 | ED.ANIMALBIT ---
HPI - Animal Bite General Chief Complaint: Animal Bite Stated Complaint: bit by dog Time Seen by Provider: 05/24/25 18:16 Source: patient Mode of arrival: ambulatory Limitations: no limitations History of Present Illness HPI narrative: This is a 39 year old male that presents to the ER for dog bite. 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 The two dogs at the hourseran around from the back yd and 1 of them bit him on the right ankle. Has a small abrasion in the area. He is unsure of his last tetanus vaccination. Does report he has the address of the home owners to follow-up on dog's vaccination status Related Data Home Medications ?Medication ?Instructions ?Recorded ?Confirmed ?Last Taken ?Type buspirone 10 mg tablet mg 04/30/23 08/27/23 Unknown History hydroxyzine HCl 25 mg tablet mg 04/30/23 08/27/23 Unknown History Allergies Allergy/AdvReac Type Severity Reaction Status Date / Time No Known Allergies Allergy Verified 05/24/25 18:30 Review of Systems Review of Systems: All systems reviewed & are unremarkable except as noted in HPI and below PMFSH Past Medical History Medical History Tobacco use Surgical History Surgical History History of tympanostomy tube placement Family History Family History Grandparent Diabetes mellitus CHF (congestive heart failure) Father Diabetes mellitus Social History Social History Social History: Surrogate medical decision maker: Daniela Leon, mother. Code status: Full code. Smoking packs per day: 1 Smoking cigarettes per day: 20.0 Years smoked: 3 Smoking pack-years: 3.00 Smoking status: Current every day smoker Tobacco type: cigarettes Alcohol intake: current Alcohol use details: Social alcohol use in moderation. Substance use: current Substance use type: marijuana Lack of Transportation: YES Lack of Food: Never True Current Housing: I Have Housing Concerned About Future Housing: No Difficulty Paying Gas/Electric Bills: YES Difficulty Paying for Meds: YES Currently Unemployed: YES Education: High School Diploma/GED Difficulty w/ Childcare or Family Care: No Living arrangements: with family Additional occupation/education comments: [employer]. Spiritual care concerns: No Exam Narrative: GENERAL: Well-appearing, well-nourished, and in no acute distress. HEAD: Normocephalic, atraumatic. EYES: EOMI. EXTREMITIES: Normal range of motion. No edema. Very superficial abrasion to the right lateral malleoli SKIN: Warm, dry, no rash. NEURO: No focal deficits. Alert and oriented x3. PSYCH: Normal mood and affect Course Vital Signs Vital signs: Vital Signs Temperature 97.7 F 05/24/25 17:45 Pulse Rate 99 05/24/25 17:45 Respiratory Rate 16 05/24/25 17:45 Blood Pressure 159/97 H 05/24/25 17:45 Pulse Oximetry 100 05/24/25 17:45 Oxygen Delivery Room Air 05/24/25 17:45 Temperature 97.7 F 05/24/25 17:45 Pulse Rate 99 05/24/25 17:45 Respiratory Rate 16 05/24/25 17:45 Blood Pressure 159/97 H 05/24/25 17:45 Pulse Oximetry 100 05/24/25 17:45 Oxygen Delivery Room Air 05/24/25 17:45 MDM - Animal Bite MDM Narrative Medical decision making narrative: Patient presents the emergency department after a dog bite today. Patient was working for [employer]. 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 He has a very superficial abrasion in the area. Patient was updated on tetanus vaccination. Has the address to get in touch with the owners for dog vaccination status. He was given warnings to return to the ER Differential Diagnosis Differential diagnosis: Likely dog bite Critical Care Time Critical Care Time Critical Care Time: No Discharge Plan Discharge Clinical Impression: Dog bite Patient Disposition: Home Condition: Stable Instructions: Animal Bite (ED) Additional Instructions: Return to the emergency department if you experience fever, redness or swelling of your wound, abnormal drainage from your wound, or any other symptoms that are concerning to you. Clean with mild soap and water daily Follow-up with your work and the health department to obtain vaccination records for the dog Patient Language: Persian Prescriptions: No Action buspirone 10 mg tablet hydroxyzine HCl 25 mg tablet Follow-up/Referrals: Susan,EDUARDA Templeton [Primary Care Provider]
[2025-05-24] MEDS: TETANUS,DIPHTHERIA,AC PERTUSSIS ADULT (0.5 ML) BOOSTRIX IM (18:47)
== END 2025-05-24 19:07 | disposition home or self-care (01) ==
PROVIDERS: Emergency Provider Physician Assistant; PCP Physician Assistant
DX: S91.051A Open bite, right ankle, initial encounter (principal); Z23 Encounter for immunization; W54.0XXA Bitten by dog, initial encounter
CPT/HCPCS: 90471; 90715; 99282